=== PATIENT | female | born 1935 | race Caucasian/White ===

== ENCOUNTER 2021-11-07 18:35 | Observation (INO) | payer OTHER ==
[~2021-11-07] VITALS: Ht 162.6 cm; Wt 49.9 kg
[2021-11-07 19:34] LABS: HEMOGLOBIN 14.4 gm/dl (12.3-15.3); RED BLOOD COUNT 4.69 M/UL (4.00-5.10); WHITE BLOOD COUNT 4.6 K/UL (4.5-11.0)
[2021-11-08] MEDS ORDERED: ESCITALOPRAM OX10 MG PO (02:30)
[2021-11-08] MEDS ORDERED: OMEPRAZOLE20 MG PO (02:30)
[2021-11-08] MEDS ORDERED: AMIODARONE HCL200 MG PO (02:31)
[2021-11-08] MEDS ORDERED: DONEPEZIL HCL10 MG PO (02:31)
[2021-11-08] MEDS ORDERED: HYDROCHLOROTH12.5 M1 PO (02:32)
[2021-11-08] MEDS ORDERED: NAMENDA5 MG PO (02:33)
[2021-11-08 06:48] LABS: WHITE BLOOD COUNT 3.6 K/UL (4.5-11.0)
[2021-11-08 06:53] LABS: RED BLOOD COUNT 3.67 M/UL (4.00-5.10)
[2021-11-09 07:40] LABS: HEMOGLOBIN 11.1 gm/dl (12.3-15.3); RED BLOOD COUNT 3.64 M/UL (4.00-5.10)
[2021-11-10 07:19] LABS: HEMOGLOBIN 11.8 gm/dl (12.3-15.3); RED BLOOD COUNT 3.82 M/UL (4.00-5.10); WHITE BLOOD COUNT 3.3 K/UL (4.5-11.0)
--- NOTE | 2021-11-10 14:00 | NUR ---
REPORT CALLED TO ALENA DICK AT [facility].
== END 2021-11-10 13:57 | disposition home health service (06) ==
LOC: ER1 18:35 → MED SURG 4 22:12 → CDU 22:12 → MED SURG 4 22:12
PROVIDERS: Internal Medicine; Physician Assistant; ADMIT Internal Medicine
DX: N17.9 Acute kidney failure, unspecified (principal); N18.30 Chronic kidney disease, stage 3 unspecified; E86.9 Volume depletion, unspecified; E87.6 Hypokalemia; E83.42 Hypomagnesemia; F03.90 Unspecified dementia, unspecified severity, without behavioral disturbance, psychotic disturbance, mood disturbance, and anxiety; R29.6 Repeated falls; E44.1 Mild protein-calorie malnutrition; Z20.822 Contact with and (suspected) exposure to COVID-19; Z68.1 Body mass index [BMI] 19.9 or less, adult; Z95.1 Presence of aortocoronary bypass graft; Z88.2 Allergy status to sulfonamides; Z79.899 Other long term (current) drug therapy
CPT/HCPCS: 0240U; 36415; 51702; 70450; 71045; 72125; 72128; 72131; 80048; 80053; 81001; 82140; 82550; 82553; 83540; 83550; 83605; 83690; 83735; 83874; 83880; 84439; 84443; 84484; 85025; 85027; 85652; 86140; 87086; 93005; 97110; 97110-GP-CQ; 97116-GP-CQ; 97162; 97166; 97530; 99285; G0378; G0480; J1650; J3475

== ENCOUNTER 2022-04-17 14:17 | Inpatient (IN) | payer OTHER ==
[~2022-04-17] VITALS: Ht 162.6 cm; Wt 38.6 kg
[~2022-04-17 14:17] MED LIST: AMIODARONE HCL200 MG PO; DONEPEZIL HCL10 MG PO; ESCITALOPRAM OX10 MG PO; HYDROCHLOROTH12.5 M1 PO; NAMENDA5 MG PO; OMEPRAZOLE20 MG PO
[2022-04-17 15:27] LABS: HEMOGLOBIN 11.7 gm/dl (12.3-15.3); RED BLOOD COUNT 3.76 M/UL (4.00-5.10); WHITE BLOOD COUNT 4.3 K/UL (4.5-11.0)
[2022-04-17 15:50] LABS: BORDETELLA PARAPERTUSSIS Not Detected (Not Detectd); BORDETELLA PERTUSSIS Not Detected (Not Detectd); CHLAMYDIA PNEUMONIAE Not Detected (Not Detectd); CORONAVIRUS HKU1 Not Detected (Not Detectd); CORONAVIRUS NL63 Not Detected (Not Detectd); CORONAVIRUS OC43 Not Detected (Not Detectd); CORONOAVIRUS 229E Not Detected (Not Detectd); HUMAN METAPNEUMOVIRUS Not Detected (Not Detectd); HUMAN RHINOVIRUS/ENTEROVIRUS Not Detected (Not Detectd); INFLUENZA A Not Detected (Not Detectd); INFLUENZA B Not Detected (Not Detectd); MYCOPLASMA PNEUMONIAE Not Detected (Not Detectd); PARAINFLUENZA VIRUS 1 Not Detected (Not Detectd); PARAINFLUENZA VIRUS 2 Not Detected (Not Detectd); PARAINFLUENZA VIRUS 3 Not Detected (Not Detectd); PARAINFLUENZA VIRUS 4 Not Detected (Not Detectd); RESPIRATORY SYNCYTIAL VIRUS Not Detected (Not Detectd)
[2022-04-17 16:41] LABS: SARS-CoV-2 NOT DETECTED (Not Detectd)
[2022-04-18 04:01] LABS: HEMOGLOBIN 9.9 gm/dl (12.3-15.3)
[2022-04-18 04:07] LABS: RED BLOOD COUNT 3.18 M/UL (4.00-5.10); WHITE BLOOD COUNT 2.5 K/UL (4.5-11.0)
[2022-04-19 06:53] LABS: HEMOGLOBIN 10.1 gm/dl (12.3-15.3); RED BLOOD COUNT 3.26 M/UL (4.00-5.10); WHITE BLOOD COUNT 2.1 K/UL (4.5-11.0)
[2022-04-21 06:27] LABS: HEMOGLOBIN 9.4 gm/dl (12.3-15.3); RED BLOOD COUNT 3.07 M/UL (4.00-5.10); WHITE BLOOD COUNT 1.7 K/UL (4.5-11.0)
[2022-04-22 06:03] LABS: HEMOGLOBIN 10.2 gm/dl (12.3-15.3); RED BLOOD COUNT 3.31 M/UL (4.00-5.10); WHITE BLOOD COUNT 1.7 K/UL (4.5-11.0)
[2022-04-23 05:51] LABS: HEMOGLOBIN 10.2 gm/dl (12.3-15.3); RED BLOOD COUNT 3.25 M/UL (4.00-5.10)
[2022-04-23 05:56] LABS: WHITE BLOOD COUNT 2.9 K/UL (4.5-11.0)
[2022-04-24 06:40] LABS: HEMOGLOBIN 9.9 gm/dl (12.3-15.3); RED BLOOD COUNT 3.19 M/UL (4.00-5.10); WHITE BLOOD COUNT 3.3 K/UL (4.5-11.0)
[2022-04-25 06:28] LABS: HEMOGLOBIN 9.9 gm/dl (12.3-15.3); RED BLOOD COUNT 3.12 M/UL (4.00-5.10); WHITE BLOOD COUNT 3.2 K/UL (4.5-11.0)
--- NOTE | 2022-04-25 14:25 | NUR ---
1400: CONTINUE TO AWAIT AMBULANCE FOR TRANSPORT TO [facility]
== END 2022-04-25 17:39 | DRG 689 ==
LOC: ER1 14:17 → CDU 16:33 → MED SURG 4 16:33
PROVIDERS: Physician Assistant; Preventive Medicine Occupational Medicine; ADMIT Internal Medicine
DX: N30.00 Acute cystitis without hematuria (principal); G93.41 Metabolic encephalopathy; D61.818 Other pancytopenia; E44.0 Moderate protein-calorie malnutrition; Z68.1 Body mass index [BMI] 19.9 or less, adult; N17.9 Acute kidney failure, unspecified; F03.90 Unspecified dementia, unspecified severity, without behavioral disturbance, psychotic disturbance, mood disturbance, and anxiety; I12.9 Hypertensive chronic kidney disease with stage 1 through stage 4 chronic kidney disease, or unspecified chronic kidney disease; N18.30 Chronic kidney disease, stage 3 unspecified; I25.10 Atherosclerotic heart disease of native coronary artery without angina pectoris; Z20.822 Contact with and (suspected) exposure to COVID-19; R53.83 Other fatigue; B96.20 Unspecified Escherichia coli [E. coli] as the cause of diseases classified elsewhere; M54.9 Dorsalgia, unspecified; D69.6 Thrombocytopenia, unspecified; R29.6 Repeated falls; R00.1 Bradycardia, unspecified; R13.10 Dysphagia, unspecified; G89.29 Other chronic pain; Z95.1 Presence of aortocoronary bypass graft; Z95.0 Presence of cardiac pacemaker; Z88.2 Allergy status to sulfonamides; Z82.49 Family history of ischemic heart disease and other diseases of the circulatory system; Z83.3 Family history of diabetes mellitus; Z85.79 Personal history of other malignant neoplasms of lymphoid, hematopoietic and related tissues
CPT/HCPCS: 36415; 36600; 70450; 71045; 80048; 80053; 81001; 82009; 82140; 82550; 82553; 82803; 83605; 83735; 83880; 84484; 85025; 85652; 86140; 87077; 87086; 87186; 87633; 92526; 92610; 93005; 96374; 96376; 97110; 97116; 97116-GP-CQ; 97162; 97166; 97530; 97530-GP-CQ; 97535; 99285; G0378; J0696; J7030; U0002